=== PATIENT | female | born 1990 | race Caucasian/White ===

== ENCOUNTER 2022-11-02 08:00 | Outpatient (RCR) | payer MEDICAID, SELFPAY ==
--- NOTE | 2022-11-02 09:05 | BH.SGPN.GN ---
Behaviors/Verbalizations/Mental Status: [] Eye contact is good. Motor activity is appropriate. Appearance is casual. Speech is Appropriate. Mood is anxnious. Affect is congruent. Thoughts are linear and logical. No evidence of psychosis. Client Response/Progress/Benefit: [] Pt participated at times during the group discussion. Attentive. Shared with the group that today was her first day in IOP. Discussed her dx of Bipolar and complex PTSD. She has had little progress in traditional outpatient which has been very frustrating and leads to feelings of hopelessness. States ? I also perceive that every little thing is a crisis?. Elaborated on how this perspective impacts her stress, anxiety, and leads to often being irritable and overwhelmed. Group provided feedback and support. Also provided advice for her first day in IOP which was beneficial. Will continue in [facility] to maintain safety, stabilize mood, and improve functioning. Narrative Note: []
--- NOTE | 2022-11-02 10:13 | BH.SGPN.GN ---
Behaviors/Verbalizations/Mental Status: []Pt alert and oriented, casually dressed and groomed. Eye contact good. Motor activity appropriate. Speech within normal limits. Affect congruent, mood depressed and anxious. Thoughts linear, logical, no signs of hallucinations or delusions. Client Response/Progress/Benefit: []Pt was an active participant in group discussion and experiential activity. Attentive during psychoeducation on possible causes to developing and maintaining unhealthy coping habits which can impact mental health. Pt participated in interactive discussion identifying common unhealthy coping skills and pt identified personal unhealthy skills as sarcasm and complaining about something without actually making any changes. ?Able to make connections between experiential activity (folder towers) and importance of having a solid base of internal and external coping skills. Benefited from increased awareness of internal and external coping skills and identifying unhealthy coping skills. Will continue IOP tx to improve healthy skill application, further increase self-care practices, and improve emotion regulation. Narrative Note: []
--- NOTE | 2022-11-02 14:22 | BH.MTP ---
Master Treatment Plan - Patient Information Program Physician:: Dr. Baptiste Primary Therapist:: Simi Coello [facility] - Psychiatric Diagnoses Psychiatric Diagnoses:: 1. Bipolar 2 disorder (currently depressed). 2. Generalized anxiety disorder. 3. PTSD. 4. Cluster B traits. 5. Marijuana use disorder Diagnosis Code(s):: F31. 81 - Estimated LOS Estimated LOS (in weeks):: 6 Problem/Goal #1 - Problem/Goal #1 Stated Goal:: Client will increase mood stability and reduce depression due to Bipolar II through Intensive Outpatient Services. Description of Barriers: Potential barriers to treatment include negative thinking, low confidence, mood dysregulation, negative social supports, and poor boundaries. Functional Impact: Patient is a 32-year-old female with a history of depression, anxiety and bipolar disorder who presents to the [facility] behavioral health IOP program because she feels I am not getting any better. She is currently on a leave of absence from work for the past 10 days. Pt had recently gone to ER due to suicidal thoughts but did not get admitted. She admits to still feeling constantly anxious and having crying spells, decreased energy, decreased concentration, decreased appetite, guilt, lack of motivation, and anhedonia. She also endorses occasional hopelessness and worthlessness. - Objectives Objective #1 Stated Objective: Client will learn and utilize 2-3 healthy coping strategies to better manage depressive and mood symptoms as shown by reduced DSM-5 scores. Interventions: Therapist will teach client various coping skills to manage her symptoms and give client tangible resources to use to regulate emotions. Therapist will use cognitive restructuring techniques and help client gain awareness of negative thoughts that reinforce depressive cycles. Discharge Criteria: Pt will have met this objective when can identify at least 2 healthy coping skills to manage mood and DSM 5 shows decrease in symptoms. Target Date: 12/14/22 Review Date: 11/30/22 Objective #2 Stated Objective: Client will identify 2-3 negative thinking patterns and be able to name triggers and skills to challenge these patterns. Interventions: Therapist will help client to identify mood changes, increased periods of depression, and thinking triggers that lead to increased depression and lack of functioning. Discharge Criteria: Client will have met this goal when reports at least 2 depressive thinking patterns and ability to reframe/challenge thoughts to more rational responses. Target Date: 12/14/22 Review Date: 11/30/22 Problem/Goal #2 - Problem/Goal #2 Stated Goal:: Client will reduce overall frequency, intensity, and duration of anxiety to improve functioning. Description of Barriers: Potential barriers to treatment include negative thinking, low confidence, mood dysregulation, negative social supports, and poor boundaries. Functional Impact: Patient is a 32-year-old female with a history of depression, anxiety and bipolar disorder who presents to the [facility] behavioral health IOP program because she feels I am not getting any better. She is currently on a leave of absence from work for the past 10 days. Pt had recently gone to ER due to suicidal thoughts but did not get admitted. She admits to still feeling constantly anxious and having crying spells, decreased energy, decreased concentration, decreased appetite, guilt, lack of motivation, and anhedonia. She also endorses occasional hopelessness and worthlessness. - Objectives Objective #1 Stated Objective: Client will learn and implement 2-3 calming skills to reduce overall anxiety and manage anxiety symptoms. Interventions: Therapist and group therapy will teach calming/relaxation skills and how to apply these skills to everyday life. Discharge Criteria: Client will have achieved this goal when can verbalize and consistently utilize at least 2 calming strategies that client reports help decrease anxious symptoms. Target Date: 12/14/22 Review Date: 11/30/22 Objective #2 Stated Objective: Pt will decrease anxious symptoms AEB pt?s score on the DSM 5 cross-cutting measure improve pt?s daily functioning. Interventions: Through groups and individual therapy, pt will be provided education about anxiety?s impact on body and common physiological reaction to anxiety. Therapist will teach pt appropriate breathing techniques and build healthy coping skills to manage daily anxieties. Discharge Criteria: Pt will have met this goal when pt?s score on the DSM 5 cross cutting measure for anxiety has been decreased and per pt?s report daily functioning has improved. Target Date: 12/14/22 Review Date: 11/30/22
--- NOTE | 2022-11-02 14:30 | BH.COMM ---
Communication Note - Communication with Client Communication Note: Met with pt to complete initial paperwork. No significant changes since pre-admission screening. Completed [place] Suicide Screening. moderate risk. Pt denies any active intent or plan. Pt reports having thoughts of killing herself but denies any intent as pt would never do that to my kids. Pt reports within the last three months pt had a tentative plan to take her fiance's gun and go to a cemetery to kill herself. Pt stated she told her finace and the gun has been locked away. No other plans since then. Pt is future oriented. Consulted with Dr. Baptiste with plan to admit to IOP level of care with dx of Bipolar 2 disorder, most recent episode depressed without psychosis F31.40
--- NOTE | 2022-11-02 15:06 | BH.PSA_ITS ---
Suicide Assessment Treatment Plan Recommendations
--- NOTE | 2022-11-02 15:06 | BH.PSA ---
Suicide Assessment Treatment Plan Recommendations
--- NOTE | 2022-11-03 09:00 | BH.SGPN.GN ---
Behaviors/Verbalizations/Mental Status: []Pt alert and oriented, casually dressed and groomed. Eye contact good. Motor activity appropriate. Speech within normal limits. Affect congruent, mood depressed. Thoughts linear, logical, no signs of hallucinations or delusions. Reviewed pt?s symptom tracker, no risk for suicidal ideation, plan, or intent as of 11/03/22 Client Response/Progress/Benefit: []Pt was quiet during session, but this is not uncommon as it is only pt's second day of IOP tx. Pt observed and appeared to use active listening AEB nodding and connecting with peers. Even though pt did not share, pt appeared to benefit from hearing supportive statements and group encouragement. Pt will continue IOP tx to prevent decompensation, gain healthy coping skills, and improve daily functioning. Narrative Note: []
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
[2022-11-03 09:48] VITALS: BP 156/90; PULSE 105
--- NOTE | 2022-11-03 10:10 | BH.SGPN.GN ---
Behaviors/Verbalizations/Mental Status: [] Eye contact is good. Motor activity is appropriate. Appearance is casual. Speech is Appropriate. Mood is anxious. Affect is congruent. Thoughts are linear and logical. No evidence of psychosis. Client Response/Progress/Benefit: [] Pt was an active participant in group discussions. Attentive during psychoeducation on the 4 communication styles (Passive, Passive-Aggressive, Aggressive, and Assertive) and the obstacles to effective communication. Contributed during interactive discussion on the benefits of communicating effectively which included; having one's needs met, helping others get their needs met, building connection with others, decreases stress and uncertainty, improved relationships, increased trust, and increased understanding of others. Worked well in small group in which pt and peers identified the benefits and disadvantages to the different communication styles. Benefited from increased understanding of communication styles and how these can impact effective communication. Will continue in IOP to prevent decompensation, maintain safety, and increase healthy coping skills. Narrative Note: []
--- NOTE | 2022-11-03 11:10 | BH.SGPN.GN ---
Behaviors/Verbalizations/Mental Status: [] Client alert and oriented, casually dressed and groomed. Eye contact good. Motor activity appropriate. Speech within normal limits. Affect congruent, mood euthymic. Thoughts linear, logical, no signs of hallucinations or delusions Client Response/Progress/Benefit: [] Client responded well to session AEB client listening attentively to others and providing input during group discussion. Client did well in the activity to be assertive and ask for feedback. Recognizes if group wasn't assertive in activity, they wouldn't have been successful. Discussed with group communication strategies used to make activity successful. Attentive during psychoeducation on interpersonal DBT skill LUÍS. Client seemed to benefit from increasing awareness of healthy strategies to improve communication. Will continue IOP tx to improve daily functioning, increase emotion regulation, and prevent decompensation.
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
--- NOTE | 2022-11-03 12:43 | BH.DR.ITP ---
Initial Treatment Plan Patient Information Visit Information: ADMISSION DATE: EXPECTED LOS: 4-6 weeks Problems/Symptoms Problem #1:: Mood instability Symptom:: Sadness, irritability, worthlessness, low energy, anhedonia, guilt, passive thoughts of Problem #2:: Anxiety Symptom:: Worry, rumination, feeling of impending doom, avoidance
--- NOTE | 2022-11-04 09:01 | BH.SGPN.GN ---
Behaviors/Verbalizations/Mental Status: []Pt alert and oriented, casually dressed and groomed. Eye contact good. Motor activity appropriate. Speech within normal limits. Affect congruent, mood anxious. Thoughts linear, logical, no signs of hallucinations or delusions. Reviewed pt?s symptom tracker, no risk for suicidal ideation, plan, or intent. Client Response/Progress/Benefit: []Pt responded well to session, attentive and receptive to feedback. Client reported mental positive as choosing to call her fianc? this morning when she noticed she was becoming irritable and irrational about the stressor this morning. Client noted she was starting to respond in unhealthy ways to her fianc?'s text and by calling him she was able to talk it out and resolve the issue. Client reported additional mental positive as starting to gain awareness of her irrational thoughts and behavior. Client shared current stressor is trying to manage complicated relationship with her best friend of 19 years. Client stated she realizes she might have to set boundaries with this friend but has historically had difficulty saying no. Seemed to benefit from support from peers. Pt will continue IOP tx to improve daily functioning, challenge distorted thoughts, and prevent decompensation.
--- NOTE | 2022-11-04 10:10 | BH.SGPN.GN ---
Behaviors/Verbalizations/Mental Status: [] Eye contact is good. Motor activity is appropriate. Appearance is casual. Speech is Appropriate. Mood is anxious. Affect is congruent. Thoughts are linear and logical. No evidence of psychosis. Client Response/Progress/Benefit: [] Pt was an active participant in group discussions. Attentive during psychoeducation on stages of change. Participated during experiential activity. Interactive group discussion on why change is difficult in which group verbalized that change involves the unknown, is scary, leads to uncertainly, makes one feel vulnerable, leads to fear of failure, and challenges one's comfort zone. Pt states change is exciting. Group discussion on how emotions such as loneliness, confusion, happy, frightened, hopeful, and guilt impact or prevent change. Benefited from increased awareness of stages of changes and how emotions impact change. Will continue in IOP to maintain safety, prevent decompensation, and to increase healthy coping. Narrative Note: []
--- NOTE | 2022-11-04 11:10 | BH.SGPN.GN ---
Behaviors/Verbalizations/Mental Status: []Pt alert and oriented, casually dressed and groomed. Eye contact good. Motor activity appropriate. Speech within normal limits. Affect constricted, mood depressed and anxious. Thoughts linear, logical, no signs of hallucinations or delusions. Client Response/Progress/Benefit: []Pt responded well to session, attentive AEB participating in activity and actively engaging in group discussion. Group processed activity to relate the strategies used to overcome barriers in the activity to managing change in own life. Discussed and set SMART goal in group as it relates to change group members are wanting to make. Pt identified change they want as ?I want to reduce negative thoughts, paranoia, and self-sabotaging behaviors.? Identified being in the preparation stage. Pt stated she is ?very unsure? what she needs to get to the next stage. Appeared to benefit from identifying a small goal to work towards. Pt will continue IOP tx to prevent decompensation, gain healthy coping skills, and improve daily functioning. ?? Narrative Note: []
--- NOTE | 2022-11-09 09:07 | BH.SGPN.GN ---
Behaviors/Verbalizations/Mental Status: []Pt alert and oriented, casually dressed and groomed. Eye contact poor. Motor activity appropriate. Speech within normal limits. Affect congruent, mood agitated and anxious. Thoughts linear, logical, no signs of hallucinations or delusions. Reviewed pt?s symptom tracker, risk for suicidal ideation within baseline, denies plan, or intent. Client Response/Progress/Benefit: []Pt responded well to session, attentive and receptive to feedback. Pt shared mental positive as taking time to practice self-care by going fishing over the weekend. Noted she typically would have stressed about getting her kids for Mother?s Day but allowed herself to take the day just for her instead. Reported additional mental positive as challenging herself to use thought challenging and grounding skills to prevent from escalating to her partner?s emotional level during an argument the previous day. Noted this is also her current stressor, as pt is unsure of whether the relationship is healthy or not. Seemed to benefit from supportive feedback from peers and identifying areas pt deserves credit. Pt will continue IOP tx to continue to promote use of healthy coping skills, promote mood stability, and prevent decompensation. Narrative Note: []
--- NOTE | 2022-11-09 10:10 | BH.SGPN.GN ---
Behaviors/Verbalizations/Mental Status: [] Eye contact is good. Alert and oriented. Motor activity is appropriate. Appearance is casual. grooming is appropriate. Speech is Appropriate. Mood is euthymic. Affect is congruent. Thoughts are linear and logical. No evidence of psychosis or hallucinations. Client Response/Progress/Benefit: [] Client active participate AEB listening attentively to others and providing contributions throughout. The group identified impacts of not managing emotions on communication as over assuming, stone-walling, cutting conversations short, and monopolizing the conversation. Client connected topic with indicating that she likes to communicate right away when emotional, but her partner does not which causes additional conflict for them. Client engaged in activity, able to manage emotions in the moment. Client processed activity with group members on the challenges that occurred and how they overcame them. Benefited from increased awareness of how stress and emotions can impact one's ability to communicate Client will continue IOP to increase consistency of healthy coping skill application, improve self worth, and prevent decompensation. Narrative Note: []
--- NOTE | 2022-11-09 11:15 | BH.SGPN.GN ---
Behaviors/Verbalizations/Mental Status: [] Client alert and oriented, casually dressed and groomed. Eye contact good. Motor activity appropriate. Speech within normal limits. Affect congruent, mood euthymic. Thoughts linear, logical, no signs of hallucinations or delusions. Client Response/Progress/Benefit: [] Client engaged in session AEB client listening attentively to peers and providing input. Attentive during psychoeducation on 4 zones of regulation. Client able to identify feelings and behaviors for each zone. Client identified coping skills one can use to support self in each zone. Client indicating when in the blue zone she can be kinder to herself and get outside. When in the yellow zone, client identified she can cope by breaking and taking time to think. While in the red zone client identified utilizing grounding techniques to cope. Benefited from increased education on zones of regulation of stages of alertness for emotions and healthy coping skills to use for each zone. Client will continue IOP tx to prevent decompensation, improve daily functioning, and improve ability to manage intrusive thinking. Narrative Note: []
--- NOTE | 2022-11-16 09:05 | BH.SGPN.GN ---
Behaviors/Verbalizations/Mental Status: [] Eye contact is good. Motor activity is appropriate. Appearance is casual. Speech is Appropriate. Mood is depressed/irritable. Affect is full. Thoughts are linear and logical. No evidence of psychosis. Reviewed daily check in sheet and pt reports 2/5 for suicidal thoughts and 0/5 for intent. This has been baseline. Client Response/Progress/Benefit: [] Pt was an active participant in group discussions. Attentive. Emotion for today is ?angry?. Daily symptom tracker notes 3/5 for depression, anxiety, and anger. .Mental health win was setting up boundaries with her children. She is giving them more responsibility around the house to clean up after themselves. Insight that by setting these boundaries it will decrease her irritability and stress which will help with mental wellness. Shared recent verbal conflict with however was able to use this as a way to grow and gain insight into her communication styles and her need to always please others at the expense of herself. Able to tie her reactions to others to her dx of BPD and is attempting to change beliefs and perspective around fear of abandonment. Benefited from group support, encouragement, and feedback. Will continue in IOP to maintain safety, stabilize mood, and increase healthy coping. Narrative Note: []
--- NOTE | 2022-11-16 10:20 | BH.SGPN.GN ---
Behaviors/Verbalizations/Mental Status: []Pt alert and oriented, casually dressed and groomed. Eye contact good. Motor activity appropriate. Speech tangential. Affect congruent, mood depressed and irritable. Thoughts linear, logical, no signs of hallucinations or delusions. Client Response/Progress/Benefit: []Pt an active participant in group discussions. Active participant in experiential activity. Attentive during psychoeducation. Attentive as peers shared types of social supports and pt identified own as her family, hobbies/activities, mental health professionals, and pets. Attentive as group identified mental health benefits of social support. Contributed as peers worked together to identify obstacles to utilizing support. Pt identified personal barriers as lack of communication, lack of emotional support by some people, and depending on certain people too much. Benefited from increased awareness of mental health benefits of social support and obstacles that prevent one from utilizing support. Will continue IOP tx to prevent decompensation, improve emotional regulation skills, and improve daily functioning. Narrative Note: []
--- NOTE | 2022-11-16 11:20 | BH.SGPN.GN ---
Behaviors/Verbalizations/Mental Status: []Client alert and oriented, casually dressed and groomed. Eye contact good. Motor activity appropriate. Speech within normal limits. Affect congruent, mood euthymic and anxious. Thoughts linear, logical, no signs of hallucinations or delusions. Client Response/Progress/Benefit: [] Client was an active participant throughout AEB contributing to small group discussion, participating in the activity, and taking notes. Client provided input during discussion on the types of support our supports can provide. Able to identify the types of supports provided by current support system and barriers that get in the way of using those supports. Client reported gaining awareness that they could benefit from more informational supports. Shared this will help to improve her understanding of her trauma, triggers, and skills to better cope. Client identified steps to achieve this as continuing with IOP tx, talk with her mental health providers, and find books on trauma. Client seemed to benefit from identifying the types of support and areas client could benefit from improving. Recommended to continue IOP tx to increase healthy coping, maintain stability, and improve overall functioning. Narrative Note: []
--- NOTE | 2022-11-17 09:00 | BH.SGPN.GN ---
Behaviors/Verbalizations/Mental Status: []Pt alert and oriented, neatly dressed and groomed. Eye contact good. Motor activity appropriate. Speech tangential. Affect congruent, mood irritable. Thoughts linear, logical, no signs of hallucinations or delusions. Reviewed pt?s symptom tracker, no risk for suicidal ideation, plan, or intent as of 11/17/22 Client Response/Progress/Benefit: []Pt responded well to session, attentive and engaged. Pt reports feeling frustrated and stressed this morning as pt was late to IOP tx today because of an argument with her fiance. Pt shared old me wouldn't have come today, I would have stayed and fought with him all day. Pt shared she is seeing progress because she is able to make healthier choices when her emotions become overwhelming. Pt's relationship continues to be one of pt's biggest stressors. Pt encouraged to practice calming skills today and pt feels she will benefit from the group distraction. Pt will continue IOP tx to promote mood stability, increase emotional regulation skills, and improve self-esteem. Narrative Note: []
--- NOTE | 2022-11-17 11:10 | BH.SGPN.GN ---
Behaviors/Verbalizations/Mental Status: []Pt alert and oriented, casually dressed and groomed. Eye contact good. Motor activity appropriate. Speech within normal limits. Affect congruent, mood depressed and anxious. Thoughts linear, logical, no signs of hallucinations or delusions. Client Response/Progress/Benefit: []Pt was an active participant during activity and discussion AEB providing some input, connecting with peers, as well as taking notes throughout. Pt did well to engage as group worked on identifying characteristics and benefits of adopting a growth mindset. Worked with fellow participants in reframing the example fixed thoughts into growth mindset thoughts. Reframed personal fixed thought of ?Treatment won?t help? with growth mindset thought of ?Treatment may be effective, I won?t know unless I give it a try.? Benefitted from discussing benefits of growth mindset and brainstorming strategies for prompting growth-mindset. Pt appeared to benefit from working in small groups to challenge own thoughts and help peers. Pt will continue IOP tx to improve self-care, reinforce healthy coping skills, and further promote healthy communication and boundaries with supports. Narrative Note: []
--- NOTE | 2022-11-17 14:54 | BH.MDN_ITS ---
Multi-Disciplinary Note - Note 60-min Individual Time Started:: 12:05 Date: 11/17/22 Purpose of session/treatment goals addressed:: Purpose of session was to address goals 1 and 2 from MTP. Eye Contact:: Good Motor Activity:: Restless Appearance:: Casual Speech:: Appropriate Mood:: Anxious Affect:: Congruent Thoughts:: Linear, Logical, No evidence of hallucinations/delusions noted Staff Interventions:: thought challenging, CBT techniques, rapport building, strengths perspective, taught coping skills - boundaries Client Response:: Client reported she has been struggling because her best friend isn't respecting her boundaries again. Client stated her best friend's behavior is rubbing off on her oldest son because he is starting to also not be respectful towards client. Client stated she felt bullied by her best frie nd and son when they wanted her to allow him to stay at her best friend's house overnight. Client reported she has significant difficulty setting boundaries with her best friend. Client stated In addition to increased stress with her best friend she is also having difficulty with her boyfriend. Client stated her boyfriend got pissed because she was not returning his text messages and angry about one of her Facebook post. Patient stated while he was at work he made passive suicidal hints which she found when she woke up this morning. Patient stated she was worried about him and try to get a hold of him so waited until he got home from work this morning. Patient reports she tried to have a conversation with him about his behavior and he started yelling at her. Patient reported her boyfriend has recently started abusing ADHD medications again and he is an alcoholic. Patient stated she feels like she cannot address issues because he is unpredictable with his reactions currently. Patient reported when he is on ADHD medications he tends to be more aggressive in his responses. Patient recognizes is not healthy for her to be a relationship in which she is constantly walking on eggshells but does not know what to do because she loves her boyfriend. Responded well to discussion about setting boundaries and the importance of communicating her needs. Worked together to challenge her negative thoughts as to why she does not set boundaries with her best friend and her boyfriend. Risks/Concerns:: Denies suicidal ideation, plan, or intention. Future oriented. Progress Toward Goals/Plan:: Progress seems to be impacted by recent psychosocial stressors with her best friend and boyfriend. Client having some difficulty with consistent attendance in IOP. Client does report progress with improved emotional regulation and believes she is managing daily stressors more effectively. Client to continue IOP to improve mood stability, increase ability to set boundaries, and prevent decompensation. Time Stopped:: 13:20
--- NOTE | 2022-11-24 09:00 | BH.SGPN.GN ---
Behaviors/Verbalizations/Mental Status: [] Eye contact good. Motor activity appropriate. Speech within normal limits. Affect congruent, anxious and positive. Thoughts linear, logical, no signs of hallucinations or delusions. Reviewed client?s symptom tracker, no risk for suicidal ideation, plan, or intent. Client Response/Progress/Benefit: [] Client responded well to session, attentive and willing to process with group. Client identified mental health positive as putting up her kids pool which she stated made her feel happy and accomplished. Client reported additional mental health positive as doing well with managing stressful situations more effectively. Client stated she has less reactive. Client stated current stressor is her employer is giving her problems with being off work to be in treatment. client expressed frustration because her human resources department came to her encouraging her to take time to help her mental health. Client stated she is going to work with IOP and outpatient psychiatrist to get paperwork complete. Seemed to benefit from support from peers. Client to continue IOP to increase emotion regulation, challenge distortions, and prevent decompensation.
--- NOTE | 2022-11-24 10:10 | BH.SGPN.GN ---
Behaviors/Verbalizations/Mental Status: []Eye contact is good. Motor activity is appropriate. Appearance is casual. Speech is Appropriate. Mood is anxious, agitated. Affect is congruent. Thoughts are linear and logical. No evidence of psychosis. Client Response/Progress/Benefit: []Pt was attentive throughout group discussion and experiential activity, though remaining mostly passive throughout. Actively listening and taking notes during psychoeducation on resilience. Participated in interactive discussion with peers on the definition of resilience and where it comes from. Pt shared that resilience includes ?mental strength?. Group identified that resiliency can be impacted by; past experiences, learned behaviors, and current mental health state. Pt noted difficulties managing ?strong emotions? can impede resilience. Group also worked together to identify the benefits of being resilient and how it is related to mental health. Able to relate experiential activity of group juggle to topics of resilience. Worked well with peers in small group in which they identified factors that contribute to resilience. Benefited from increased awareness of resilience and the factors that contribute to building resilience. Will continue in IOP to prevent decompensation and further promote mood stability, as well as continue to promote application of healthy stress management skills and communication with supports. Narrative Note: []
--- NOTE | 2022-11-24 11:10 | BH.SGPN.GN ---
Behaviors/Verbalizations/Mental Status: []Pt alert and oriented, casually dressed and groomed. Eye contact good. Motor activity appropriate. Speech within normal limits. Affect congruent, mood stressed. Thoughts linear, logical, no signs of hallucinations or delusions Client Response/Progress/Benefit: []Pt responded well to session AEB completing the resilience worksheet provided. Pt participated in the discussion and worked cooperatively with group to identify strategies to enhance each of the components discussed. Pt reports belief they already use resilience trait of??accepting that change is a part of living.? Pt shared she reminds herself that ?things are always changing in life.? Pt stated they would like to continue to develop resilience trait of ?take decisive action.? Pt seemed to benefit from discussing strategies for improving personal resilience and identifying resilience traits pt already possesses. Progress noted in pt?s report of improving emotional regulation skills. Will continue IOP tx to promote mood stability, reduce negative thinking patterns, and increase distress tolerance skills. ?? Narrative Note: []
--- NOTE | 2022-11-24 12:09 | PCM.BH.PN_ITS ---
Progress Note Progress Note: History of Present Illness/Interim History: The patient is a 32-year-old female with a history of depression and bipolar disorder and anxiety who is seen in follow-up at the [facility] behavioral health IOP program. I last saw the patient 3 weeks ago and at that time medications were continued as ordered but Vistaril was added 25 mg to help with panic attacks up to 2 or 3 times a day. Patient states that she is feeling much better. She feels levelheaded and much less depressed now. Her anxiety is also improved and is much less than several weeks ago. She has had a few mild down periods at times in the last week but overall she is minimally depressed. She is much less irritable also. She has had not having any crying spells anymore. She denies any passive thoughts of in the past week. She has occasional fleeting, passive suicidal ideation still but denies any active suicidal ideation, plan for suicide, homicidal ideation, hallucinations or delusions. Sleep is good now with the Seroquel but sometimes is hard to get up due to the Seroquel. She is engaged and enjoying the program and feels she is learning valuable skills to help manage her mental health issues and she is surprised by how much awareness helps her deal with her issues. She is currently a little stressed because she says her work is being POC about her doing the IOP program but she is still going to be able to do it. Current Psychiatric Medications: [] Seroquel 400 mg p.o. nightly (dose increased 5 weeks ago); lithium carbonate 1200 mg p.o. nightly (regular blood work done by her outpatient doctor). She has had mild edema bilaterally in her lower feet and ankles lately and her outpatient provider is working this up by getting blood work and an EKG. A diuretic would be not optimal for the patient to take due to her use of lithium. Mental Status Examination: [] The patient is a 32-year-old female who appears normal for stated age and is casually dressed and groomed with good hygiene. She has no psychomotor agitation or retardation. She is cooperative and pleasant during the interview. Eye contact is good and speech is normal rate and rhythm and fluent with no pressure. Mood is mildly down to euthymic. Affect is full and normal. Thought processes goal-directed and organized. Thought content: There is not no evidence of passive thoughts of . There is evidence of occasional fleeting, passive suicidal ideation. There is no evidence of plan for suicide, active suicidal ideation, hallucinations or delusions. Reality testing is intact. Insight is good. Judgment is intact. Impulsivity is moderate. Diagnoses: [] 1. Bipolar 2 disorder 2. Generalized anxiety disorder 3. PTSD 4. Cluster B traits 5. Marijuana use disorder Plan: [] The patient will continue the IOP program at [facility] as the structure, support, education and group therapy will hopefully prevent worsening of the patient's symptoms that could require hospitalization. The patient felt safe during the interview and if it anytime she does not feel safe she will let us know or go to the emergency room. No medication changes were made today and the patient will continue to follow-up with her outpatient providers. Refill was sent in for the Vistaril 25 mg taken as needed for panic attacks up to 3 times a day. I will see the patient in follow-up in several weeks or as needed.
--- NOTE | 2022-12-15 08:07 | BH.MDN ---
Multi-Disciplinary Note - Note 60-min Individual Time Started:: 12:11 Date: 12/14/22 Purpose of session/treatment goals addressed:: Purpose of session was to address goals 1 and 2 from MTP. Eye Contact:: Good Motor Activity:: Appropriate Appearance:: Casual Speech:: Appropriate Mood:: Anxious, Irritable, Other - sad Affect:: Congruent Thoughts:: Linear, Logical, No evidence of hallucinations/delusions noted Staff Interventions:: thought challenging, motivational interviewing, CBT techniques, mindfulness skills, strengths perspective Client Response:: Patient reported feeling frustrated with herself because she is feeling torn about what she wants to do about her current relationship because she is desiring to be with her best friend. Patient stated she is trying to evaluate if the feeling of wanting to be with her best friend is a temporary emotion or if it is something that she needs to listen to. Patient expressed frustration because she goes through this every few months in which she does not want to be with her boyfriend and wants to be with her best friend. Patient stated she believes she loves both of these people and has a hard time seeing herself with not both of them in her life. Patient reported this cycle makes her feel crazy. Through discussion patient recognizes being with her best friend would not be healthy for her at this time because her friend has a lot of her own work to do to be healthy. Patient stated she is also not super happy with her current relationship because she recognizes he is an alcoholic. Patient stated her boyfriend drinks daily and she does not believe she ever is around him sober. Patient reported she continues to stay with him because she knows he is a safer option compared to being with her best friend. Patient stated she also is not sure if these feelings are being intensified due to decreasing her medications recently and being on her period. Patient stated what will be most helpful today is to take time for self-care which she plans to go fishing. Patient reported she feels like she needs to talk to her boyfriend about her feelings because it is not fair to him for her to be back and forth about who she wants to be with. However patient stated she is worried that if he is on more than just alcohol he can become more aggressive. Patient and therapist discussed it would be in her best interest to only have this discussion if he is not in a state of mind that would result in increased aggression. Risks/Concerns:: Denies suicidal ideation, plan or intention to date. Progress Toward Goals/Plan:: Client noted recent decompensation in mood the last few days. Client stated she is feeling more irritable and is confused about her relationships again. Client reported she is unsure if this is due to medication changes or if it's connected to starting her period. Client stated she often has a few days every month in which she questions her current relationship. Client reported she is frustrated with herself for not being able to make a solid decision. Client stated she will not make any major decisions until she feels like it's a decision she's thought out thoroughly. Client to continue IOP to monitor medication change, continue use of skills and prevent decompensation. Time Stopped:: 13:15
== END 2022-11-24 23:59 ==
LOC: BHIOP 08:00
PROVIDERS: PCP Family Medicine; Referring Provider Psychiatry & Neurology Psychiatry; Visit Provider Psychiatry & Neurology Psychiatry
DX: F31.81 Bipolar II disorder (principal); F41.1 Generalized anxiety disorder; F43.10 Post-traumatic stress disorder, unspecified; F12.90 Cannabis use, unspecified, uncomplicated
CPT/HCPCS: 90792; 99214; H2012; H2020; S9480; T1002; 90837

== ENCOUNTER 2022-11-25 07:42 | Outpatient (RCR) | payer MEDICAID, SELFPAY ==
[2022-11-25 00:45] VITALS: BP 156/90; PULSE 105
--- NOTE | 2022-11-25 09:05 | BH.SGPN.GN ---
Behaviors/Verbalizations/Mental Status: [] Eye contact is good. Motor activity is appropriate. Appearance is casual. Speech is Appropriate. Mood is anxious. Affect is congruent. Thoughts are linear and logical. No evidence of psychosis. Reviewed daily check in sheet and no reports of suicidal ideations or intent. Client Response/Progress/Benefit: [] Pt was an active participant in group discussions. Attentive. Emotion for today is ?nervous and apprehensive?. Mental health win was ?living in the present?. She has been practicing mindfulness and briefly discussed how this has helped with negative thoughts and managing emotions. Improved functioning and less distress. She was able to ?not engage? in a toxic event. This small decision she believed made her day better. Utilizing opposite-action as well. She continues to reports depression and mental health struggles however overall the frequency and intensity of her mental health has decrease. Benefited from group support, encouragement, and feedback. Will continue in IOP to prevent decompensation, stabilize mood, and increase healthy coping skills. Narrative Note: []
--- NOTE | 2022-11-25 10:10 | BH.SGPN.GN ---
Behaviors/Verbalizations/Mental Status: []Client alert and oriented, casually dressed and groomed. Eye contact good. Motor activity appropriate. Speech within normal limits. Affect congruent. mood euthymic. Thoughts linear, logical, no signs of hallucinations or delusions. Client Response/Progress/Benefit: []Client was an active participant in group discussions and activity. Attentive during psychoeducation. Client engaged in activity in which group was able to make connections about how can be easier to find positives in others compared to self. Engaged in interactive discussion on the definition of perspective, how perspective is formed, and why perspective is important in treatment. Client shared how her perspective towards treatment was initially negative but shifted to being more positive after allowing self to take in the information and apply it. Will continue in IOP to continue use of skills, improve distress tolerance, and prevent decompensation.
--- NOTE | 2022-11-25 11:13 | BH.SGPN.GN ---
Behaviors/Verbalizations/Mental Status: []Pt alert and oriented, casually dressed and groomed. Eye contact good. Motor activity appropriate. Speech within normal limits. Affect congruent, mood euthymic. Thoughts linear, logical, no signs of hallucinations or delusions. Client Response/Progress/Benefit: []Pt was attentive and contributed to small group discussion. Pt reflected on their perspective today which pt shared was hopeful and motivated Pt stated her perspective has significantly shifted since her first day of IOP. Pt worked with group to identify strategies to challenge one?s perspective and one of these strategies was identifying and using strengths. Pt acknowledged one of her personal strengths of being empathetic and open-minded and she wants to work on challenging her perspective by reminding herself that thoughts are thoughts not facts. Benefited from identifying personal strengths and strategies for challenging perspective. Pt to continue IOP tx to promote mood stability, combat distortions, and increase healthy boundary setting. Narrative Note: []
--- NOTE | 2022-12-02 14:29 | BH.COMM_ITS ---
Communication Note - Communication with Client Communication Note: Patient called this morning reporting she is having high blood pressure problems this week which has made it not possible to attend group all week. Pt stated she is also having difficulty waking up and sleeping through her alarm. Pt reported mentally she is feeling good and stable, but physically she feels shitty. Pt stated she is retaining water and her ankles have been swelling. Pt reported her outpatient psychiatrist increased her seroquel to 400mg and her lithium to 1200mg two months ago. Pt stated her outpatient psychiatrist stated the medical complaints were outside her scope of practice and for pt to see a PCP. Pt reported her PCP was unfamiliar with interactions/complications of psychiatric medications and also did not have an answer for pt. Pt was started on metoprolol this week for blood pressure, but hasn't helped. Pt stated she has gained 40 pounds in the last three months. Pt reported she has an EKG scheduled for tomorrow. Blood work show good kidney functioning. Pt stated she is looking for any additional direction on what she should do. This travel writer presented information via phone call to Dr. Baptiste. Dr. Baptiste instructed this travel writer to encourage pt to decrease her Seroquel to 200 mg and decrease her [place] to 600mg. Dr. Baptiste stated to make this change to see if lowering her medication dosage improves physical issues. Dr. Baptiste stated the potential risks of staying on current doses of psychiatric medicati ons outweigh possible benefits of decreasing dosage. Dr. Baptiste wants to run a [place] lab next week. Dr. Baptiste states to inform patient to continue to follow up with her PCP and if her physical symptoms worsen she is to contact her PCP or go to the nearest emergency room. Dr. Baptiste wants pt to be informed if she starts to experience hypomania or depression to contact [facility] for medication adjustment.
--- NOTE | 2022-12-07 09:00 | BH.SGPN.GN ---
Behaviors/Verbalizations/Mental Status: [] Eye contact is good. Motor activity is appropriate. Appearance is casual. Speech is Appropriate. Mood is depressed. Affect is congruent. Thoughts are linear and logical. No evidence of psychosis. Reviewed daily check in sheet and no reports of suicidal ideations or intent. Client Response/Progress/Benefit: [] Pt engaged in group session AEB sharing thoughts and feelings and listening attentively to others. Pt reported mental health positive as going away with her on a weekend trip. Pt stated the positive of the trip was getting time away together, however did have moments of frustration because she was reminded that her is an alcoholic. Pt reported additional mental health positive as realizing from her sons therapy sessions that she needs to put more focus on nurturing her relationship with her sons instead of worrying about their relationships with others. Stated stressor as having physical symptoms of high blood pressure and ankles are swollen with no identified cause. Seemed to benefit from support from peers. Will continue in IOP to increase consistent use of healthy coping, challenge distorted thoughts, and prevent decompensation.
--- NOTE | 2022-12-07 10:05 | BH.SGPN.GN ---
Behaviors/Verbalizations/Mental Status: []Eye contact is good. Motor activity is appropriate. Appearance is casual. Speech is Appropriate. Mood is depressed and anxious. Affect is congruent. Thoughts are linear and logical. No evidence of psychosis. Client Response/Progress/Benefit: []Pt did well to engage and was an active participant in group discussion. Attentive during psychoeducation on the CBT [place] (Thoughts, Behaviors, Emotions). Involved in group discussion on how thoughts and behaviors can contribute to maintaining adverse feelings, such as depression, anxiety, and irritability. Completed worksheet in which pt identified a thought that is keeping them stuck or is in obstacle to increased mental wellness. The thoughts that pt identified were ?something bad is going to happen?, ?if you go, you?ll miss the opportunity to head off any potential issue?, and ?you can?t trust anyone?. Pt benefited from increased awareness of the basis of CBT therapy as well as specific thoughts that are impacting pt' progress. Will continue in IOP to improve stability and healthy communication with supports, prevent decompensation, and to increase healthy coping skills. Narrative Note: []
--- NOTE | 2022-12-07 11:06 | BH.SGPN.GN ---
Behaviors/Verbalizations/Mental Status: []Pt alert and oriented, neatly dressed and groomed. Eye contact good. Motor activity appropriate. Speech within normal limits. Affect congruent, mood anxious and dysthymic. Thoughts linear, logical, no signs of hallucinations or delusions. Client Response/Progress/Benefit: []Pt responded well to session, contributing to discussion, and attentive throughout discussion. Pt identified a negative thought that has kept them stuck. Pt's thought was I can?t trust people.? Pt reported when they think this way, pt gets anxious and tries to control the situation/other?s behaviors which results in pt missing work to control her homelife and leads to interpersonal conflict. Pt worked to reframe the thought by finding more rational, realistic ways to look at the thoughts and then processed them within group setting. Pt reframed the thought to ?There are trustworthy people in the world and if I am open to it, I can find them.? Pt appeared to benefit from practicing challenging negative thinking. Pt will continue IOP tx to prevent decompensation, increase distress tolerance and healthy conflict resolution, and maintain gains made. ? Narrative Note: []
--- NOTE | 2022-12-08 09:00 | BH.SGPN.GN ---
Behaviors/Verbalizations/Mental Status: [] Eye contact is good. Motor activity is appropriate. Appearance is casual. Speech is Appropriate. Mood is euthymic. Affect is full. Thoughts are linear and logical. No evidence of psychosis. Reviewed daily check in sheet and no reports of suicidal ideations or intent. Client Response/Progress/Benefit: [] Pt was an active participant in group discussion. Attentive. Daily symptom tracker notes 08/01 for anxiety/depression. Mental health win was I baked a cake. Shared that she has always loved baking however has not baked in a long time. Baking is a mental health win because it was self-care stating I really just enjoyed it. This activity helped her mental health in numerous ways. She also shared recent insight regarding boundary-setting and her self-worth. Identified an unhealthy relationship and instead of blaming her self reframed her perspective stating You know I don't deserve to be treated that way. Group pointed out how this perspective and decision most likely saved her from hours of depression, anxiety, anger, and ruminations which was beneficial to her. Will continue in IOP to prevent decompensation, increase healthy coping, and to stabilize mood. Narrative Note: []
--- NOTE | 2022-12-08 12:51 | PCM.BH.PN_ITS ---
Progress Note Progress Note: And history of Present Illness/Interim History: The patient is a 32-year-old female with a history of depression, anxiety and bipolar disorder who is seen in follow-up at the [facility] health IOP program. I last saw the patient 2 weeks ago and at that time no medication changes were made. The patient later had worsening of her edema and saw her primary care doctor and had an EKG and blood work done 6 days ago but has not heard of any results yet. I was called by the staff and instructed the patient that since the edema started shortly after starting the Seroquel and increasing the lithium that we should try decreasing her lithium and her Seroquel somewhat. The patient refused to do this as she is afraid that her mental health symptoms will worsen. Discussed today with the patient that if if we will try at least decreasing medication we can discover what the edema is due to while watching closely for any relapse in her mental health symptoms. She feels overall her depression has significantly improved and her anxiety is also much less than before. She had panic attacks only once or twice last week which were relieved with Vistaril. She is not crying anymore. She is getting about 7 hours of sleep but has slight difficulty falling asleep some nights and she gets less on those nights. She has some fatigue in the morning and difficulty getting out of the bed. She denies passive thoughts of , suicidal ideation, homicidal ideation, hallucinations, delusions or plan for suicide. She feels she is learning valuable skills in the IOP program. Current Psychiatric Medications: [] Seroquel 400 mg p.o. nightly (x7 weeks); lithium carbonate 1200 mg p.o. nightly (last lithium level 0.78); Vistaril 25 mg twice daily as needed. Objective: The patient continues to have moderate edema bilaterally on her feet and ankles which does not appear to be pitting. Mental Status Examination: [] The patient is a 32-year-old female who appears normal for stated age and is casually dressed and groomed with good hygiene. She is cooperative and pleasant during the interview. Eye contact is good and speech is normal rate and rhythm and fluent with no pressure. Mood is mildly anxious. Affect is full and normal. Thought process is goal-directed and organized. Thought content: There is evidence of fear about weaning her medications because she does not want her depression and anxiety to relapse. This is balanced with worry over the edema. There is no evidence of passive thoughts of , suicidal ideation, homicidal ideation, plan for suicide, hallucinations or delusions. Reality testing is intact. Judgment is intact. Insight is good. Impulsivity is moderate. Diagnoses: [] 1. Bipolar 2 disorder 2. Generalized anxiety disorder 3. PTSD 4. Cluster B traits 5. Marijuana use disorder Plan: [] The patient will continue the IOP program as the structure, support, education and group therapy will hopefully prevent worsening of the patient's symptoms. The patient felt safe during the interview and if it anytime she does not feel safe she will let us know or go to the emergency room. The patient agrees to decrease her Seroquel to 200 mg p.o. nightly. The lithium will be continued at the usual dose. The patient will watch to see if her edema resolves over the next few weeks and if there is any worsening in her mental health symptoms she will let us know so we can adjust medications accordingly. If the edema improves with a decrease in her Seroquel then we will not adjust the lithium. The patient will continue to follow-up with her primary care provider and find out the results of her work-up there that are still pending. She will continue to follow-up with outpatient psychiatric providers also and I will see the patient in follow-up in 2 weeks and as needed.
--- NOTE | 2022-12-08 15:06 | BH.MDN ---
Multi-Disciplinary Note - Note 60-min Individual Time Started:: 11:00 Date: 12/08/22 Purpose of session/treatment goals addressed:: Purpose of session was to address goals 1 and 2 from MTP. Eye Contact:: Good Motor Activity:: Appropriate Appearance:: Casual Speech:: Appropriate Mood:: Euthymic Affect:: Full Thoughts:: Linear, Logical, No evidence of hallucinations/delusions noted Staff Interventions:: thought challenging, CBT techniques, strengths perspective, goal setting, taught coping skills Client Response:: Client reported she is still unsure about what is causing her water retention and high blood pressure. Client stated in meeting with [facility] psychiatrist today it is recommended she decrease her Seroquel in half. Client stated she feels nervous about being off the full dose of Seroquel due to having significant issues when she goes into a manic episode. Client recognizes she still is on the lithium which can help prevent radha. Client trusts the recommendation by [facility] psychiatrist and will give it a try. Client reported besides her medical issues she is feeling more stable which again contributes to anxiety about reducing her medications. Client stated she her worry is her mood will start to be unstable with decrease in med after finally feeling mentally stable. Client expressed anxiety about returning to work soon especially with having medication changes. Client stated she feels that she has been doing a better job with setting boundaries with her kids and managing daily stressors. Client receptive to therapist helping her with thought challenging negativity about her medication change. Client agreeable to continue to practice healthy skills and communicate with staff if concerned about her mood changing with decrease in med. Risks/Concerns:: denies current suicidal ideation, plan, or intention to date. Progress Toward Goals/Plan:: Progress noted with client reporting improved mood stability. Client stated she has been managing daily stressors more effectively and is able to communicate more effectively. Reported she has been trying to slowly bring up different topics to her boyfriend that she would like to discuss instead of avoiding all difficult discussions. Client's biggest concern is new medical complications that could be caused by her psychiatric diagnoses. Client is to continue IOP to monitor recent medication changes, continue use of skills, and prevent decompensation. Time Stopped:: 12:00
--- NOTE | 2022-12-14 09:02 | BH.SGPN.GN ---
Behaviors/Verbalizations/Mental Status: []Eye contact good. Motor activity appropriate. Speech within normal limits. Affect congruent, mood anxious and agitated. Thoughts linear, logical, no signs of hallucinations or delusions. Reviewed client?s symptom tracker, no risk for suicidal ideation, plan, or intent as of 12/14/2022. Client Response/Progress/Benefit: []Client responded well to session, attentive and willing to process with group. Identified current mental health wins as spending time outdoors fishing over the weekend. Shared this helped to regulate her emotions over the weekend. Additional win noted as coming to group today despite feeling ?off?. Shared in the past she would have cancelled and acted impulsively. Did well to identify healthy ways to manage her emotions today rather than act on impulsive urges. Did well to identify several skills for managing this stressor in healthy ways such as being engaged in group, meeting individually with therapist, and spending time outdoors this afternoon. Client appeared to benefit from group support and encouragement. Recommended continued IOP tx to continue to improve mood stability, continue to promote self-care and healthy coping, as well as encourage positive self-talk. Narrative Note: []
--- NOTE | 2022-12-14 10:15 | BH.SGPN.GN ---
Behaviors/Verbalizations/Mental Status: []Pt alert and oriented, casually dressed and groomed. Eye contact good. Motor activity appropriate. Speech within normal limits. Affect congruent, mood stressed. Thoughts linear, logical, no signs of hallucinations or delusions. Client Response/Progress/Benefit: []Pt was an active participant during interactive group discussions. Attentive during psychoeducation on the six types of boundaries. Pt along with peers contributed to interactive discussion on defining what a boundary is and group identified challenges to setting boundaries. Pt discussed personal barriers of fear of hurting others and feeling that the boundary is ?not appropriate or fair?. Group reviewed the 6 types of boundaries. Pt stated when someone violates other?s boundaries pt is likely to stand up for them, but pt struggles to stand up for herself. benefited from increased awareness and insight on the importance/benefit to setting health boundaries. Will continue IOP tx to increase distress tolerance, improve self-care, and improve mood stability. Narrative Note: []
--- NOTE | 2022-12-14 11:20 | BH.SGPN.GN ---
Behaviors/Verbalizations/Mental Status: []Pt alert and oriented, casually dressed and groomed. Eye contact good. Motor activity appropriate. Speech within normal limits. Affect congruent, mood anxious and slightly irritable. Thoughts linear, logical, no signs of hallucinations or delusions. Client Response/Progress/Benefit: []Pt responded well to session AEB listening attentively to peers and providing input. Pt attentive during psychoeducation on the different boundary styles. Pt identified she is mostly porous with her boundaries in all areas of her life. Stated there are times in which she is rigid with her intellectual and emotional boundaries. Pt was given a handout on strategies for healthy boundary setting. Appeared to benefit from increasing insight to boundary setting and the impacts on mental health. Seemed to benefit from increased awareness of boundary styles and strategies to improve setting boundaries. Will continue IOP tx to stabilize moods, increase healthy coping, and prevent decompensation.
--- NOTE | 2022-12-15 15:40 | BH.COMM ---
Communication Note - Communication with Client Communication Note: no call/ no show for IOP
--- NOTE | 2022-12-16 15:42 | BH.COMM ---
Communication Note - Communication with Client Communication Note: NO CALL/ NO SHOW
--- NOTE | 2022-12-17 15:36 | BH.COMM ---
Communication Note - Communication with Client Communication Note: Client contacted staff today because she met with her PCP whom told client she believes client's medication is the cause of client's water retention and high blood pressure. Client stated her high blood pressure is being managed better with blood pressure medication, but is not seeing any improvement with water retention. This bond writer spoke with Dr. Baptiste about the case. Dr. Baptiste suggests client decrease [place] to 600mg for 5 days then stop taking her [place]. Once she stops taking her [place] she can have her PCP start her on a water pill. Dr. Baptiste states water pills and [place] can have a negative reaction if taken together so the safest option is to go off the [place] to see if that is causing the water retention. Dr. Baptiste wants to see client in two weeks to start her on a new medication to replace the [place] with a different mood stabilizer. Pt expresses understanding of plan.
--- NOTE | 2022-12-22 15:27 | BH.DS_ITS ---
Discharge Summary Demographics Date of Admission:: 11/02/22 Discharge Date: 12/22/22 Presenting Problems at Admission:: Patient is a 32-year-old female with a history of depression, anxiety and bipolar disorder who presents to the [facility] behavioral health IOP program because she feels I am not getting any better. She is currently on a leave of absence from work for the past 10 days. Pt had recently gone to ER due to suicidal thoughts but did not get admitted. She admits to still feeling constantly anxious and having crying spells, decreased energy, decreased concentration, decreased appetite, guilt, lack of motivation, and anhedonia. She also endorses occasional hopelessness and worthlessness. Discharge Diagnoses:: 1. Bipolar 2 disorder (currently depressed) F31.81 2. Generalized anxiety disorder 3. PTSD 4. Cluster B traits 5. Marijuana use disorder Reason for Discharge:: Pt has no showed/no called numerous times in the last couple weeks of IOP. Pt was scheduled to meet with [facility] psychiatrist to discuss some medication issues she has been having, but she no showed/no called her appointment. Due to lack of attendance which is a breach of the attendance policy she will be discharged from [facility] today. Treatment Progress During Treatment & Response: Pt was demonstrating slight progress with reporting decrease in anxiety in the first three weeks of treatment. Pt's depression seemed to maintain throughout her time in the program. Pt had continued stress over her relationship with her current partner and a relationship with her ex. This stressor seemed to have significant negative impact on her mood and often led to increased anxiety and depressed symptoms. Progress was hindered by her lack of attendance in the last three weeks of the program. When she did attend IOP she was often engaged and provided feedback. Issues Still to be Addressed:: Pt to continue working on mood stability, challenge negative thoughts, processing her relationships, increasing confidence, and increasing use of healthy coping skills. Discharge Recommendations/Instructions:: Pt recommended to continue seeing her outpatient providers through [facility]. Discharge Handout
== END 2022-12-24 23:59 ==
LOC: BHIOP 07:42
PROVIDERS: PCP Family Medicine; Referring Provider Psychiatry & Neurology Psychiatry; Visit Provider Psychiatry & Neurology Psychiatry
DX: F31.81 Bipolar II disorder (principal); F41.1 Generalized anxiety disorder; F43.10 Post-traumatic stress disorder, unspecified; F12.90 Cannabis use, unspecified, uncomplicated
CPT/HCPCS: 99214; H2012; H2020; S9480; 90837